=== PATIENT | female | born 1960 | race African-American/Black ===

== ENCOUNTER → 2017-11-12 | Outpatient (CLI) | payer OTHER ==
--- NOTE | 2017-11-12 14:28 | XR ---
EXAMINATION TYPE: 2 views right wrist. 2 views right hand DATE OF EXAM: 11/12/2017 COMPARISON: NONE HISTORY: 57-year-old female with right sided wrist and hand pain, carpal tunnel FINDINGS: Wrist: There is widening at the scapholunate interval measuring 3 mm. The radiocarpal and distal radial ulna r joint appear intact. No acute fracture, subluxation, or dislocation seen. 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 No ac moapa fracture, subluxation, or dislocation. IMPRESSION: Widening at the scapholunate interval suggests age indeterminate injury/tear of the scapholunate liga ment. Correlate for any wrist instability. Otherwise, wrist and hand without acute osseous abnormality seen.
== END | disposition home or self-care (01) ==
LOC: RADXRMAIN 12:40
PROVIDERS: ATTEND Family Medicine
DX: M25.531 Pain in right wrist (principal)